=== PATIENT | female | born 1965 | race Caucasian/White ===

== ENCOUNTER 2020-11-02 06:57 | Day surgery (SDC) | payer OTHER ==
[2020-10-24 11:56] VITALS: BMI 30.7
[2020-11-02] MEDS ORDERED: LIDOCAINE HCL 1%, 10 MG/ML (20ML VIAL) ONE (08:49)
[2020-11-02] MEDS ORDERED: BUPIVACAINE HCL/PF 2.5 MG/ML - 30 ML VIAL IJ ONE (08:49)
[2020-11-02] MEDS ORDERED: MIDAZOLAM HCL 2 MG/2 ML SINGLE DOSE VIAL ONE (09:08)
[2020-11-02 11:12] VITALS: BP 145/74; PULSE 71; TEMP 97.9
== END 2020-11-02 11:00 | disposition home or self-care (01) ==
LOC: FASU 06:57
PROVIDERS: ATTEND Orthopaedic Surgery
PROC: 0MBM0ZZ Excision of Left Hip Bursa and Ligament, Open Approach (ICD-10-PCS; principal; 2020-11-02 09:30)
DX: M70.62 Trochanteric bursitis, left hip (principal); Y93.9 Activity, unspecified